=== PATIENT | male | born 1970 | race Caucasian/White ===

== ENCOUNTER 2019-02-07 07:53 | Outpatient (RCR) | payer OTHER ==
[~2019-02-07 07:53] MED LIST: ASPIRIN E.C. 8181 MG PO; NO HOME MEDICATIONS
== END 2019-03-20 | disposition home or self-care (01) ==
LOC: WSOH
DX: M54.5 Low back pain (principal); M54.32 Sciatica, left side; X50.0XXA Overexertion from strenuous movement or load, initial encounter; Y92.59 Other trade areas as the place of occurrence of the external cause; Y99.0 Civilian activity done for income or pay; Z87.891 Personal history of nicotine dependence; Z79.1 Long term (current) use of non-steroidal anti-inflammatories (NSAID); Z79.899 Other long term (current) drug therapy